=== PATIENT | female | born 1960 | race African-American/Black ===

== ENCOUNTER 2020-11-25 15:02 | Emergency (ER) | payer MEDICAID, OTHER ==
[~2020-11-25] VITALS: Ht 157.5 cm; Wt 68.0 kg
[2020-11-25 16:18] LABS: BASOPHILS % 0.9 % (0.0-2.0); EOSINOPHILS % 1.2 % (0.0-5.0); HEMATOCRIT. 43.8 % (36.0-48.0); HEMOGLOBIN. 14.7 g/dL (12.0-16.0); LYMPHOCYTES % 28.1 % (20.0-50.0); MEAN CORPUSCULAR HEMOGLOBIN 31.2 pg (28.0-32.0); MEAN CORPUSCULAR VOLUME 92.9 fL (81.0-99.0); MEAN PLATELET VOLUME 8.6 fl (7.4-10.4); MONOCYTES % 5.1 % (2.0-8.0); NEUTROPHILS % 64.7 % (40.0-76.0); PLATELET 201 x1000/uL (130-400); RED BLOOD CELL COUNT 4.72 mill/uL (4.2-5.4); RED CELL DISTRIBUTION WIDTH 11.8 % (11.6-14.6)
[2020-11-25 16:19] LABS: CLARITY URINE CLEAR (CLEAR); COLOR URINE YELLOW (YELLOW); KETONES URINE NEGATIVE (NEGATIVE); LEUKOCYTE ESTERASE URINE NEGATIVE (NEGATIVE); NITRITE URINE NEGATIVE (NEGATIVE); OCCULT BLOOD URINE NEGATIVE (NEGATIVE); PROTEIN URINE NEGATIVE (NEGATIVE); SPECIFIC GRAVITY URINE 1.036 (1.005-1.030); UROBILINOGEN URINE 0.2 E.U./dL (0.2-1.0)
[2020-11-25 16:25] LABS: CHLORIDE 96 mEq/L (98-107)
[2020-11-25 16:26] LABS: PROTHROMBIN TIME 10.6 sec (9.6-11.0)
[2020-11-25] MEDS ORDERED: SODIUM CHLORIDE 0.9% 1,000 ML IV ONE (16:30)
[2020-11-25] MEDS ORDERED: INSULIN REGULAR (HUMULIN R) 300UNITS/3ML VIAL SUBCUT ONE (17:00)
[2020-11-25 20:48] VITALS: BP 130/87
== END 2020-11-25 21:54 | disposition home or self-care (01) ==
LOC: ER 15:02
DX: E11.65 Type 2 diabetes mellitus with hyperglycemia (principal); I10 Essential (primary) hypertension; E86.0 Dehydration
CPT/HCPCS: 36415; 80053; 81003; 82962; 83690; 84484; 85025; 85610; 93005; 99285; J1815; J7030

== ENCOUNTER 2023-09-02 19:07 | Emergency (ER) | payer BC, MEDICAID ==
[~2023-09-02] VITALS: Ht 162.6 cm; Wt 73.0 kg
[2023-09-02 19:15] VITALS: TEMP 98.1; O2SAT 100
[2023-09-02] MEDS ORDERED: KETOROLAC 30MG/ML VIAL IV STA (19:41)
[2023-09-02] MEDS: KETOROLAC 30MG/ML VIAL IV NR (19:41)
[2023-09-02] MEDS: SODIUM CHLORIDE 0.9% 1,000 ML IV ONE (19:45)
[2023-09-02 20:05] LABS: BASOPHILS % 0.3 % (0.0-2.0); EOSINOPHILS % 0.3 % (0.0-5.0); HEMATOCRIT. 46.5 % (36.0-48.0); HEMOGLOBIN. 15.5 g/dL (12.0-16.0); LYMPHOCYTES % 13.1 % (20.0-50.0); MEAN CORPUSCULAR HEMOGLOBIN 31.2 pg (28.0-32.0); MEAN CORPUSCULAR HGB CONC 33.3 g/dL (31.0-37.0); MEAN CORPUSCULAR VOLUME 93.7 fL (81.0-99.0); MEAN PLATELET VOLUME 7.9 fl (7.4-10.4); NEUTROPHILS % 82.3 % (40.0-76.0); PLATELET 249 x1000/uL (130-400); RED BLOOD CELL COUNT 4.97 mill/uL (4.2-5.4); WHITE BLOOD COUNT 13.4 x1000/uL (4.5-11.0)
[2023-09-02 20:21] LABS: ALANINE AMINOTRANSFERASE 63 IU/L (10-49); ALBUMIN 4.9 g/dL (3.2-4.8); ASPARTATE AMINOTRANSFERASE 34 IU/L (<34); BILIRUBIN TOTAL 0.4 mg/dL (0.1-1.0); CALCIUM 10.2 mg/dL (8.7-10.4); CARBON DIOXIDE 29 mEq/L (21-32); CHLORIDE 94 mEq/L (98-107); CREATININE 1.2 mg/dL (0.6-1.0); POTASSIUM 4.5 mEq/L (3.5-5.1); PROTEIN TOTAL 8.1 g/dL (6.0-8.3); SODIUM 133 mEq/L (136-145); UREA NITROGEN BLOOD 15 mg/dL (9-23)
[2023-09-02 20:23] LABS: GLUCOSE 424 mg/dL (70-105)
[2023-09-02] MEDS ORDERED: ONDA4TAB50 MT (22:02)
[2023-09-02] MEDS ORDERED: INSULIN REGULAR (HUMULIN R) 300UNITS/3ML VIAL SUBCUT ONE (22:15)
[2023-09-02 23:07] VITALS: BP 128/84; PULSE 88; RESP 18
== END 2023-09-02 23:09 | disposition home or self-care (01) ==
LOC: ER 19:07
DX: R10.33 Periumbilical pain (principal); E11.65 Type 2 diabetes mellitus with hyperglycemia; E78.00 Pure hypercholesterolemia, unspecified; I10 Essential (primary) hypertension
CPT/HCPCS: 99291; 74176; 96374; 96361; 80053; 83690; 85025; 36415; J1885; J7030